=== PATIENT | female | born 1965 | race Caucasian/White ===

== ENCOUNTER → 2016-12-22 | Outpatient (CLI) | payer MEDICAID ==
[2016-12-22 08:57] LABS: Basophils % (A) 0 %; CH 30.2; CHCM 34.8; Eosinophils # (A) 0.1 k/uL (0-0.7); Eosinophils % (A) 1 %; HCT 39.1 % (34.0-46.0); HDW 2.63; HGB 13.3 gm/dL (11.4-16.0); Luc # (Auto) 0.08; Luc % (Auto) 2; Lymphocytes # (A) 1.8 k/uL (1.0-4.8); Lymphocytes % (A) 36 %; MCH 29.6 pg (25.0-35.0); MCV 87.2 fL (80.0-100.0); Mean Platelet Volume 6.4; Monocytes # (A) 0.2 k/uL (0-1.0); Monocytes % (A) 4 %; Neutrophils # (A) 2.9 k/uL (1.3-7.7); Neutrophils % (A) 57 %; RBC 4.48 m/uL (3.80-5.40); RDW 13.2 % (11.5-15.5); WBC 5.1 k/uL (3.8-10.6); WBC (Perox) 5.39
[2016-12-22 10:00] LABS: ALT 26 U/L (9-52); AST 20 U/L (14-36); Alkaline Phosphatase 48 U/L (38-126); Anion Gap 10 mmol/L; Blood Urea Nitrogen 7 mg/dL (7-17); Calcium 9.6 mg/dL (8.4-10.2); Carbon Dioxide 26 mmol/L (22-30); Chloride 107 mmol/L (98-107); Cholesterol 188 mg/dL (<200); Glucose 90 mg/dL (74-99); HDL Cholesterol 57 mg/dL (40-60); Non-African American GFR(MDRD) >60 (>60 ml/min/1.73 sqM); Potassium 4.5 mmol/L (3.5-5.1); Sodium 143 mmol/L (137-145); Total Bilirubin 0.4 mg/dL (0.2-1.3); Total Protein 6.8 g/dL (6.3-8.2); Triglycerides 87 mg/dL (<150)
[2016-12-22 10:45] LABS: Vitamin B12 261 pg/mL (239-931)
[2016-12-22 11:34] LABS: Erythrocyte Sedimentation Rate 14 mm/hr (0-20)
== END | disposition home or self-care (01) ==
LOC: LABWHC1 07:58
PROVIDERS: ATTEND Internal Medicine
DX: E78.5 Hyperlipidemia, unspecified (principal); C50.919 Malignant neoplasm of unspecified site of unspecified female breast; M79.7 Fibromyalgia; E55.9 Vitamin D deficiency, unspecified; K21.9 Gastro-esophageal reflux disease without esophagitis; G62.9 Polyneuropathy, unspecified
CPT/HCPCS: 36415; 80053; 80061; 82306; 82607; 84439; 84443; 85025; 85652; 86677

== ENCOUNTER → 2017-01-12 | Outpatient (CLI) | payer MEDICAID ==
--- NOTE | 2017-01-12 15:02 | XR ---
EXAMINATION TYPE: XR lumbosacral spine min 4V DATE OF EXAM: 01/12/2017 2:21 PM COMPARISON: NONE HISTORY: Low back pain TECHNIQUE: 5 view lumbar spine FINDINGS: T12 ribs appear rudimentary. There 5 lumbar-type vertebral bodies. The pedicles are intact. L5-S1 disc space is narrowed. Disc heights are otherwise preserved. Vertebral body heights are prese rved. L5-S1 facet degenerative changes present. IMPRESSION: 1. Degenerative disc changes and facet changes L5-S1.
== END | disposition home or self-care (01) ==
LOC: RADXRMAIN 14:01
PROVIDERS: ATTEND Internal Medicine
DX: M51.37 Other intervertebral disc degeneration, lumbosacral region (principal)
CPT/HCPCS: 72110

== ENCOUNTER → 2017-02-01 | Outpatient (CLI) | payer MEDICAID ==
--- NOTE | 2017-02-02 09:42 | MM ---
Reason for exam: follow-up at short interval from prior study. Last mammogram was performed 7 months ago. History: Patient has history of breast cancer at age 41. Silicone gel implants, February 2016. Breast lift of the left breast, February 2016. Benign US biopsy breast VAD LT of the left breast, June 25, 2015. Malignant mastectomy of the right breast, October 05, 2006. Saline implants in both breasts, 2006. Benign excisional biopsy of the left breast, 2001. Took tamoxifen for 1 year 9 months. Physical Findings: Nurse Summary: Findings indicate a 1 x 1.5cm and a 1 x 1cm nodule in the 1 o'clock and 4 o'clock position (nurse ts). MG 3D Diag Mammo Imp W/Cad LT CC, MLO, and ID view(s) were taken of the left breast. Prior study comparison: June 23, 2016, left breast MG 3d diag mammo imp w/cad LT. December 23, 2015, left breast MG 3d diag mammo imp w/cad LT. The breast tissue is heterogeneously dense. This may lower the sensitivity of mammography. Previous mammotome biopsy within the left breast. There is chronic nodularity in the left breast. Left breast implant. Increase in size. These results were verbally communicated with the patient and result sheet given to the patient on 02/01/18. ASSESSMENT: Incomplete: need additional imaging evaluation, BI-RAD 0 RECOMMENDATION: Ultrasound of the left breast.
--- NOTE | 2017-02-02 09:47 | USB ---
Reason for exam: additional evaluation requested from abnormal screening. History: Patient has history of breast cancer at age 41. Silicone gel implants, February 2016. Breast lift of the left breast, February 2016. Benign US biopsy breast VAD LT of the left breast, June 25, 2015. Malignant mastectomy of the right breast, October 05, 2006. Saline implants in both breasts, 2006. Benign excisional biopsy of the left breast, 2001. Took tamoxifen for 1 year 9 months. US Breast LT Left breast ultrasound includes all four quadrants, the retroareolar region and axilla. Finding demonstrate a 9 x 6 x 8mm oval, cystic lesion at palpable at 2 o'clock, a 6 x 5 x 8mm irregular, solid, hypoechoic lesion at 3 o'clock, previously biopsied, consistent with fibrocystic changes, and a 18 x 11 x 17mm oval, cystic lesion at 4 o'clock at palpable. These results were verbally communicated with the patient and result sheet given to the patient on 02/01/17. ASSESSMENT: Benign, BI-RAD 2 RECOMMENDATION: Follow-up diagnostic mammogram of the left breast in 5 months. Back on schedule June 2017.
== END | disposition home or self-care (01) ==
LOC: RADMAMWWP 08:17
PROVIDERS: ATTEND Obstetrics & Gynecology
DX: R92.8 Other abnormal and inconclusive findings on diagnostic imaging of breast (principal); Z98.82 Breast implant status
CPT/HCPCS: 76641; G0206; G0279

== ENCOUNTER → 2017-06-19 | Day surgery (SDC) | payer MEDICAID ==
[2017-06-14 12:16] VITALS: BMI 22.4
[~2017-06-19] MED LIST: BUPIVACAINE-EPI 0.5%-1:200,000 10 ML VIAL SQ ONE; DEXAMETHASONE SOD PHOSPHATE 10 MG/ML 1 ML VIAL IV ONE; HEPARIN SODIUM,PORCINE 5,000 UNIT/ML 1 ML VIAL SQ ONE; HYDROmorphone 0.5 MG/0.5 ML SYRINGE IVP PRN; KETOROLAC 30 MG/ML 1 ML VIAL ONE; LACTATED RINGERS 1,000 ML IV SCH; LIDOCAINE 1% 20 ML VIAL (10MG/ML) FOR IV START INTRADERMA ONE; LIDOCAINE 1% INJ 10MG/ML (20 ML MDV) ONE; MIDAZOLAM 2 MG/2 ML VIAL IV PRN; MIDAZOLAM 2 MG/2 ML VIAL ONE; ONDANSETRON 4 MG/2 ML VIAL IVP ONE; PROPOFOL 10 MG/ML 20 ML VIAL IV ONE; Pre Op ABX Message 1 EACH MISC MISCELLANE ONE; SCOPOLAMINE 1.5MG/72HR PATCH TRANSDERM ONE; SODIUM CHLORIDE 0.9% 50 ML with ceFAZolin 2,000 MG IV ONE; fentaNYL (PF) 50 MCG/ML 2 ML AMP ONE
[2017-06-19 06:49] VITALS: RESP 16; TEMP 98
[2017-06-19 08:33] VITALS: BP 99/57; PULSE 69
--- NOTE | 2017-06-19 10:59 | P.OP ---
Date of Procedure: 06/19/17 Preoperative Diagnosis: Right chest wall cyst Postoperative Diagnosis: Same Procedure(s) Performed: Excision of sebaceous cyst right chest wall Implants: NA Anesthesia: MAC, local Surgeon: Oneida Crawley Estimated Blood Loss (ml): 1 Pathology: none sent Condition: stable Disposition: PACU Indications for Procedure: 51 yr old female presents with growing right chest wall cyst. Mild redness. H/O right mastectomy and implant. Operative Findings: Right chest wall sebaceous cyst Description of Procedure: The patient was brought to the operating room and placed in supine position with both arms out. IV sedation was given as per anesthesia team. Chlorhexidine was used to prep the skin followed by application of sterile drapes. A timeout was performed to verify the correct patient, correct site and correct procedure. She was confirmed to receive perioperative IV antibiotics, bilateral SCDs. 10 mL of 0.25% Marcaine with epinephrine was infiltrated along the proposed skin incision to create a field block. 1.5 cm elliptical skin incision was made along the natural skin crease over the palpable mass. Dissection was carried around using a hemostat and scissors to remove the entire cyst wall. It was completely dissected off the surrounding subcutaneousand hemostasis was checked using electrocautery. The final measurement is 1.5 x 0.5 x0.1 cm The resulting defect for checked for hemostasis. It was closed in 2 layers , deep subcutaneous fat layer using 3-0 Vicryl and 4-0 interrupted nylon. Telfa dressing applied followed by Tegaderm. The sponge , instrument and needle count were correctx 2. Patient tolerated the procedure well and was taken to PACU in stable condition.
== END | disposition home or self-care (01) ==
LOC: OR 06:29
PROVIDERS: ATTEND Surgery
DX: L72.0 Epidermal cyst (principal); M79.7 Fibromyalgia; K21.9 Gastro-esophageal reflux disease without esophagitis; Z79.899 Other long term (current) drug therapy
CPT/HCPCS: 11402; 12031; 88304; J2250; J1644; J1100; J2405; J2001; J3010; J1885; J0690; J2704

== ENCOUNTER → 2017-11-27 | Outpatient (CLI) | payer MEDICAID ==
--- NOTE | 2017-11-27 15:16 | MM ---
Reason for exam: follow-up at short interval from prior study. Last mammogram was performed 10 months ago. History: Patient has history of breast cancer at age 41. Silicone gel implants, February 2016. Breast lift of the left breast, February 2016. Benign US biopsy breast VAD LT of the left breast, June 25, 2015. Malignant mastectomy of the right breast, October 05, 2006. Saline implants in both breasts, 2006. Benign excisional biopsy of the left breast, 2001. Took antineoplastic for 5 years beginning at age 41. Physical Findings: Nurse Summary: 1cm nodule in the left breast at 2:30 (nurse dw). MG 3D Diag Mammo Imp W/Cad LT CC, MLO, and ID view(s) were taken of the left breast. Prior study comparison: February 01, 2017, left breast MG 3d diag mammo imp w/cad LT. June 23, 2016, left breast MG 3d diag mammo imp w/cad LT. The breast tissue is heterogeneously dense. This may lower the sensitivity of mammography. There are benign multiple stable left breast masses although there are also at least 3 new medial asymmetries for which ultrasound will be performed. These results were verbally communicated with the patient and result sheet given to the patient on 11/27/17. ASSESSMENT: Incomplete: need additional imaging evaluation, BI-RAD 0 RECOMMENDATION: Ultrasound of the left breast. (medial breast)
--- NOTE | 2017-11-27 15:21 | USB ---
Reason for exam: additional evaluation requested from abnormal screening. History: Patient has history of breast cancer at age 41. Silicone gel implants, February 2016. Breast lift of the left breast, February 2016. Benign US biopsy breast VAD LT of the left breast, June 25, 2015. Malignant mastectomy of the right breast, October 05, 2006. Saline implants in both breasts, 2006. Benign excisional biopsy of the left breast, 2001. Took antineoplastic for 5 years beginning at age 41. US Breast Limited LT Left breast ultrasound demonstrates several oval, cystic lesions measuring 15 x 12 x 15 at 4 o'clock BB, 7mm at 4 o'clock, 4mm at 10 o'clock, 10mm at 11 o'clock and 6mm at 11 o'clock. These results were verbally communicated with the patient and result sheet given to the patient on 11/27/17. ASSESSMENT: Benign, BI-RAD 2 RECOMMENDATION: Routine screening mammogram of the left breast in 1 year.
== END | disposition home or self-care (01) ==
LOC: RADMAMWWP 13:45
PROVIDERS: ATTEND Obstetrics & Gynecology
DX: R92.8 Other abnormal and inconclusive findings on diagnostic imaging of breast (principal); Z85.3 Personal history of malignant neoplasm of breast
CPT/HCPCS: 77065; 76642; G0279

== ENCOUNTER → 2018-06-13 | Outpatient (CLI) | payer MEDICAID ==
--- NOTE | 2018-06-13 09:42 | MM ---
Reason for exam: clinical finding. Last mammogram was performed 6 months ago. History: Patient has history of breast cancer at age 41. Silicone gel implants, February 2016. Breast lift of the left breast, February 2016. Benign US biopsy breast VAD LT of the left breast, June 25, 2015. Malignant mastectomy of the right breast, October 05, 2006. Saline implants in both breasts, 2006. Benign excisional biopsy of the left breast, 2001. Took antineoplastic for 5 years beginning at age 41. Physical Findings: Nurse Summary: 1cm nodule in the left breast at 12 o'clock and 3 o'clock (nurse dw). MG 3D Diag Mammo Imp W/Cad LT CC, MLO, and ID view(s) were taken of the left breast. Prior study comparison: November 27, 2017, left breast MG 3d diag mammo imp w/cad LT. February 01, 2017, left breast MG 3d diag mammo imp w/cad LT. The breast tissue is heterogeneously dense. This may lower the sensitivity of mammography. Previous mammotome biopsy in the left breast. There is chronic nodularity in the left breast. Implants intact. These results were verbally communicated with the patient and result sheet given to the patient on 06/13/18. ASSESSMENT: Incomplete: need additional imaging evaluation, BI-RAD 0 RECOMMENDATION: Ultrasound of the left breast.
--- NOTE | 2018-06-13 09:44 | USB ---
Reason for exam: additional evaluation requested from abnormal screening. History: Patient has history of breast cancer at age 41. Silicone gel implants, February 2016. Breast lift of the left breast, February 2016. Benign US biopsy breast VAD LT of the left breast, June 25, 2015. Malignant mastectomy of the right breast, October 05, 2006. Saline implants in both breasts, 2006. Benign excisional biopsy of the left breast, 2001. Took antineoplastic for 5 years beginning at age 41. US Breast LT Left complete breast ultrasound includes all four quadrants, the retroareolar region and axilla. Finding demonstrates a 5 x 5 x 5mm cystic lesion at 12 o'clock BB, a 7 x 3 x 6mm solid, hypoechoic lesion at 3 o'clock and a 13 x 9 x 13mm cystic lesion at 4 o'clock BB. Multiple cystic area seen. These results were verbally communicated with the patient and result sheet given to the patient on 06/13/18. ASSESSMENT: Benign, BI-RAD 2 RECOMMENDATION: Routine screening mammogram of both breasts in 1 year. Manage patient on a clinical basis.
== END | disposition home or self-care (01) ==
LOC: RADMAMWWP 07:37
PROVIDERS: ATTEND Surgery
DX: N64.4 Mastodynia (principal); N63.20 Unspecified lump in the left breast, unspecified quadrant; R92.8 Other abnormal and inconclusive findings on diagnostic imaging of breast
CPT/HCPCS: 77061; 77065

== ENCOUNTER 2018-11-07 10:42 | Day surgery (SDC) | payer MEDICAID ==
[2018-11-02 10:49] VITALS: BMI 23.0
[~2018-11-07 10:42] MED LIST changes: -BUPIVACAINE-EPI 0.5%-1:200,000 10 ML VIAL SQ ONE; -DEXAMETHASONE SOD PHOSPHATE 10 MG/ML 1 ML VIAL IV ONE; -HEPARIN SODIUM,PORCINE 5,000 UNIT/ML 1 ML VIAL SQ ONE; -HYDROmorphone 0.5 MG/0.5 ML SYRINGE IVP PRN; -KETOROLAC 30 MG/ML 1 ML VIAL ONE; -LIDOCAINE 1% 20 ML VIAL (10MG/ML) FOR IV START INTRADERMA ONE; +LIDOCAINE 1% 20 ML VIAL (10MG/ML) FOR IV START INTRADERMA PRN; -LIDOCAINE 1% INJ 10MG/ML (20 ML MDV) ONE; -MIDAZOLAM 2 MG/2 ML VIAL IV PRN; -MIDAZOLAM 2 MG/2 ML VIAL ONE; -ONDANSETRON 4 MG/2 ML VIAL IVP ONE; -PROPOFOL 10 MG/ML 20 ML VIAL IV ONE; -Pre Op ABX Message 1 EACH MISC MISCELLANE ONE; -SCOPOLAMINE 1.5MG/72HR PATCH TRANSDERM ONE; -SODIUM CHLORIDE 0.9% 50 ML with ceFAZolin 2,000 MG IV ONE; -fentaNYL (PF) 50 MCG/ML 2 ML AMP ONE
[2018-11-07 11:17] VITALS: RESP 16; TEMP 98.2
[2018-11-07] MEDS ORDERED: MIDAZOLAM 2 MG/2 ML VIAL ONE (12:00)
[2018-11-07] MEDS ORDERED: PROPOFOL 10 MG/ML 20 ML VIAL IV ONE (12:00)
[2018-11-07] MEDS ORDERED: fentaNYL (PF) 50 MCG/ML 2 ML AMP ONE (12:00)
--- NOTE | 2018-11-07 12:20 | P.PCN ---
Date of Procedure: 11/07/18 Procedure(s) Performed: BRIEF HISTORY: Patient is a 53-year-old pleasant white female, scheduled for an elective colonoscopy as a part screening for colorectal neoplasia PROCEDURE PERFORMED: Colonoscopy With snare polypectomy PREOPERATIVE DIAGNOSIS: Screening for colon cancer. IV sedation per Anesthesia. PROCEDURE: After informed consent was obtained, the patient, was brought into the endoscopy unit. IV sedation was administered by Anesthesia under continuous monitoring. Digital rectal examination was normal. Initially the Olympus CF- 160 flexible video colonoscope was then inserted in the rectum, gradually advanced into the cecum without any difficulty. Careful examination was performed as the scope was gradually being withdrawn. Ileocecal valve and the appendiceal orifice were visualized and appeared normal. Prep was excellent. Mucosa of the cecum appeared normal. In the ascending colon there was a 5 mm sessile polyp removed by snare polypectomy. Rest of thecending colon, transverse colon, descending colon, sigmoid colon, and rectum appeared normal. Retroflexion was performed in the rectum and no lesions were seen. The patient tolerated the procedure well. IMPRESSION: 5 mm sessile ascending colon polyp status post polypectomy Rest of the colon appeared normal RECOMMENDATIONS: Findings of this examination were discussed with the patient as well as a family. She was advised to follow with the biopsy results and have a repeat screening colonoscopy in 5 years.
[2018-11-07 12:39] VITALS: BP 90/55; PULSE 69
== END 2018-11-07 13:03 | disposition home or self-care (01) ==
LOC: ORWHC2ENDO 10:42
PROVIDERS: ATTEND Internal Medicine Gastroenterology
DX: Z12.11 Encounter for screening for malignant neoplasm of colon (principal); D12.2 Benign neoplasm of ascending colon; K21.9 Gastro-esophageal reflux disease without esophagitis; M79.7 Fibromyalgia; Z79.899 Other long term (current) drug therapy
CPT/HCPCS: 88305; 45385; J2250; J3010; J2704

== ENCOUNTER → 2019-06-26 | Outpatient (CLI) | payer MEDICAID ==
--- NOTE | 2019-06-28 10:54 | MM ---
Reason for exam: screening (asymptomatic). Last mammogram was performed 1 year ago. History: Patient is postmenopausal and has history of breast cancer at age 41. Silicone gel implants, February 2016. Breast lift of the left breast, February 2016. Benign US biopsy breast VAD LT of the left breast, June 25, 2015. Malignant mastectomy of the right breast, October 05, 2006. Saline implants in both breasts, 2006. Benign excisional biopsy of the left breast, 2001. Took antineoplastic for 5 years beginning at age 41. Physical Findings: A clinical breast exam by your physician is recommended on an annual basis and results should be correlated with mammographic findings. MG 3D Screen Mammo Imp/Cad CC, MLO, and ID view(s) were taken of the left breast. Prior study comparison: June 13, 2018, left breast MG 3d diag mammo imp w/cad LT. November 27, 2017, left breast MG 3d diag mammo imp w/cad LT. The breast tissue is heterogeneously dense. This may lower the sensitivity of mammography. Previous mammotome biopsy in the right breast. Retropectoral silicone implant. Two underlying nodules better seen on 3D were present previously as well. No significant changes when compared with prior studies. ASSESSMENT: Benign, BI-RAD 2 RECOMMENDATION: Routine screening mammogram of the left breast in 1 year.
== END | disposition home or self-care (01) ==
LOC: RADMAMWWP 12:45
PROVIDERS: ATTEND Obstetrics & Gynecology
DX: Z12.31 Encounter for screening mammogram for malignant neoplasm of breast (principal); Z98.82 Breast implant status
CPT/HCPCS: 77063; 77067

== ENCOUNTER → 2019-07-01 | Outpatient (CLI) | payer MEDICAID ==
[2019-07-01 09:27] LABS: Basophils % (A) 0 %; Eosinophils # (A) 0.1 k/uL (0-0.7); Eosinophils % (A) 1 %; HCT 39.3 % (34.0-46.0); HGB 13.2 gm/dL (11.4-16.0); Lymphocytes # (A) 2.4 k/uL (1.0-4.8); Lymphocytes % (A) 45 %; MCH 30.2 pg (25.0-35.0); MCHC 33.6 g/dL (31.0-37.0); MCV 89.9 fL (80.0-100.0); Mean Platelet Volume 6.3; Monocytes # (A) 0.2 k/uL (0-1.0); Monocytes % (A) 4 %; Neutrophils # (A) 2.5 k/uL (1.3-7.7); Neutrophils % (A) 48 %; Platelet Count 251 k/uL (150-450); RBC 4.37 m/uL (3.80-5.40); RDW 13.6 % (11.5-15.5); WBC 5.3 k/uL (3.8-10.6)
[2019-07-01 17:37] LABS: African American GFR (CKD) 122.3 (60.0-200.0); Albumin 4.1 g/dL (3.80-4.90); Albumin/Globulin Ratio 2.41 (1.60-3.17); Anion Gap 5.7 mmol/L (4.00-12.00); BUN/Creat Ratio 11.67 Ratio (12.00-20.00); Carbon Dioxide 30.3 mmol/L (21.6-31.8); Chol/HDL Ratio 3.26; Globulin 1.7 g/dL (1.6-3.3); LDL Cholesterol,Calculated 109.2 mg/dL (0.0-131.0); Potassium 4.5 mmol/L (3.5-5.5); Total Bilirubin 0.5 mg/dL (0.2-1.2); Total Protein 5.8 g/dL (6.2-8.2); VLDL Calculation 19.8 mg/dL (5.00-40.00)
[2019-07-01 17:46] LABS: T4, Free (Free Thyroxine) 1.1 ng/dL (0.80-1.80)
== END ==
LOC: LABWHC1 08:55
PROVIDERS: ATTEND Internal Medicine
DX: Z00.00 Encounter for general adult medical examination without abnormal findings (principal); E78.5 Hyperlipidemia, unspecified; E55.9 Vitamin D deficiency, unspecified
CPT/HCPCS: 36415; 80053; 80061; 82306; 84439; 84443; 85025

== ENCOUNTER → 2020-08-19 | Outpatient (CLI) | payer MEDICAID ==
--- NOTE | 2020-08-21 10:36 | MM ---
Reason for exam: screening (asymptomatic). Last mammogram was performed 1 year and 2 months ago. History: Patient is postmenopausal and has history of breast cancer at age 41. Silicone gel implants, February 2016. Breast lift of the left breast, February 2016. Benign US biopsy breast VAD LT of the left breast, June 25, 2015. Malignant mastectomy of the right breast, October 05, 2006. Saline implants in both breasts, 2006. Benign excisional biopsy of the left breast, 2001. Took antineoplastic for 5 years beginning at age 41. Physical Findings: A clinical breast exam by your physician is recommended on an annual basis and results should be correlated with mammographic findings. MG 3D Screen Mammo Imp/Cad CC, MLO, ID, and XCCL view(s) were taken of the left breast. Prior study comparison: June 26, 2019, left breast MG 3d screen mammo imp/cad. June 13, 2018, left breast MG 3d diag mammo imp w/cad LT. The breast tissue is heterogeneously dense. This may lower the sensitivity of mammography. Previous mammotome biopsy in the left breast. There is chronic nodularity in the left breast. Retropectoral silicone implant. No significant changes when compared with prior studies. ASSESSMENT: Benign, BI-RAD 2 RECOMMENDATION: Routine screening mammogram of the left breast in 1 year.
== END | disposition home or self-care (01) ==
LOC: RADMAMWWP 13:25
PROVIDERS: ATTEND Obstetrics & Gynecology
DX: Z12.31 Encounter for screening mammogram for malignant neoplasm of breast (principal); Z85.3 Personal history of malignant neoplasm of breast; Z90.11 Acquired absence of right breast and nipple
CPT/HCPCS: 77063; 77067

== ENCOUNTER → 2021-03-03 | Outpatient (CLI) | payer MEDICAID ==
[2021-03-03 12:11] LABS: Basophils # (A) 0.03 X 10*3/uL (0.00-0.10); Basophils % (A) 0.6 %; Eosinophils % (A) 1.9 %; HCT 38.4 % (37.2-46.3); HGB 12.7 g/dL (12.0-15.0); Lymphocytes % (A) 42.5 %; MCH 29.6 pg (27.0-32.0); MCHC 33.1 g/dL (32.0-37.0); MCV 89.5 fL (80.0-97.0); Mean Platelet Volume 10.3 fL (9.5-12.2); Monocytes # (A) 0.32 X 10*3/uL (0.20-1.00); Monocytes % (A) 6.2 %; Neutrophils # (A) 2.52 X 10*3/uL (1.80-7.70); Neutrophils % (A) 48.6 %; Platelet Count 251 X 10*3/uL (140-440); RBC 4.29 X 10*6/uL (4.10-5.20); RDW 12.6 % (11.5-14.5); WBC 5.18 X 10*3/uL (4.50-10.00)
[2021-03-03 16:32] LABS: T4, Free (Free Thyroxine) 1.3 ng/dL (0.80-1.80)
[2021-03-03 17:41] LABS: Erythrocyte Sedimentation Rate 12 mm/Hr (0-30)
[2021-03-03 17:57] LABS: African American GFR (CKD) 120.6 (60.0-200.0); Albumin 4.4 g/dL (3.80-4.90); Albumin/Globulin Ratio 2.1 (1.60-3.17); Anion Gap 7.3 mmol/L (4.00-12.00); BUN/Creat Ratio 11.67 Ratio (12.00-20.00); C Reactive Protein, High Sens 0.21 mg/L (0.000-3.000); Calcium 9.3 mg/dL (8.7-10.3); Carbon Dioxide 28.7 mmol/L (21.6-31.8); Chol/HDL Ratio 3.91; Globulin 2.1 g/dL (1.6-3.3); LDL Cholesterol,Calculated 125.8 mg/dL (0.0-131.0); Non-African American GFR(CKD) 104.1 (60.0-200.0); Potassium 4.1 mmol/L (3.5-5.5); Total Bilirubin 0.4 mg/dL (0.3-1.2); Total Protein 6.5 g/dL (6.2-8.2); Uric Acid 2.7 mg/dL (2.9-7.7); VLDL Calculation 28.2 mg/dL (5.00-40.00)
== END | disposition home or self-care (01) ==
LOC: LABWHC1 07:49
PROVIDERS: ATTEND Internal Medicine Critical Care Medicine
DX: M25.50 Pain in unspecified joint (principal); M79.7 Fibromyalgia; R51.9 Headache, unspecified
CPT/HCPCS: 36415; 80053; 80061; 82306; 82607; 84439; 84443; 84550; 85025; 85652; 86038; 86141; 86431

== ENCOUNTER → 2021-08-20 | Outpatient (CLI) | payer MEDICAID ==
--- NOTE | 2021-08-20 14:51 | MM ---
Reason for exam: additional evaluation requested from prior study. Last mammogram was performed 1 year ago. History: Patient is postmenopausal and has history of breast cancer at age 41. Silicone gel implants, February 2016. Breast lift of the left breast, February 2016. Benign US biopsy breast VAD LT of the left breast, June 25, 2015. Malignant mastectomy of the right breast, October 05, 2006. Saline implants in both breasts, 2006. Benign excisional biopsy of the left breast, 2001. Took antineoplastic for 5 years beginning at age 41. Physical Findings: Nurse Summary: 1.5cm nodule in the left breast at 3 o'clock and a 1cm nodule in the left breast at 5 'clock (nurse dw). MG 3D Diag Mammo Imp W/Cad LT CC, MLO, ID, and XCCL view(s) were taken of the left breast. Prior study comparison: August 19, 2020, bilateral MG 3d screen mammo imp/cad. June 26, 2019, left breast MG 3d screen mammo imp/cad. The breast tissue is heterogeneously dense. This may lower the sensitivity of mammography. Previous mammotome biopsy in the left breast. There is chronic nodularity in the left breast laterally, two lesions up to 11mm last ultrasound 2017. These results were verbally communicated with the patient and result sheet given to the patient on 08/20/21. ASSESSMENT: Incomplete: need additional imaging evaluation, BI-RAD 0 RECOMMENDATION: Ultrasound of the left breast.
--- NOTE | 2021-08-20 14:52 | USB ---
Reason for exam: additional evaluation requested from abnormal screening. History: Patient is postmenopausal and has history of breast cancer at age 41. Silicone gel implants, February 2016. Breast lift of the left breast, February 2016. Benign US biopsy breast VAD LT of the left breast, June 25, 2015. Malignant mastectomy of the right breast, October 05, 2006. Saline implants in both breasts, 2006. Benign excisional biopsy of the left breast, 2001. Took antineoplastic for 5 years beginning at age 41. US Breast Limited LT Left limited breast ultrasound including focal area of concern, retroareolar and axilla demonstrates a 10 x 8 x 10mm oval, mixed, hypoechoic lesion at 4 o'clock, decreased in size from 2018. Additional smaller benign cysts. These results were verbally communicated with the patient and result sheet given to the patient on 08/20/21. ASSESSMENT: Benign, BI-RAD 2 RECOMMENDATION: Routine screening mammogram of both breasts in 1 year.
== END | disposition home or self-care (01) ==
LOC: RADMAMWWP 13:01
PROVIDERS: ATTEND Obstetrics & Gynecology
DX: N60.02 Solitary cyst of left breast (principal); N64.59 Other signs and symptoms in breast; Z85.3 Personal history of malignant neoplasm of breast; Z78.0 Asymptomatic menopausal state; Z98.82 Breast implant status
CPT/HCPCS: 77061; 77065

== ENCOUNTER → 2022-01-31 | Outpatient (CLI) | payer MEDICAID | END | disposition home or self-care (01) | LOC: LABWHC1 14:04 | PROVIDERS: ATTEND Ophthalmology | DX: M31.6 Other giant cell arteritis (principal) | CPT/HCPCS: 36415; 85652; 86140 ==

== ENCOUNTER → 2022-03-17 | Outpatient (CLI) | payer MEDICAID ==
--- NOTE | 2022-03-17 10:06 | CT ---
EXAMINATION TYPE: CT sinus wo con DATE OF EXAM: 03/17/2022 COMPARISON: None available HISTORY: Chronic Sinusitis CT DLP: 596.5 mGycm. Automated Exposure Control for Dose Reduction was Utilized. TECHNIQUE: CT scan of the sinuses is performed without contrast, axial images are obtained, coronal r eformatted images are also reviewed. FINDINGS: Slightly deviated bony nasal septum convex to the right side with a bony spare. No significant mucosa l thickening of the nasal fossa bilaterally. Paradoxical middle turbinates. Hypoplastic left inferior turbinate. Patent infundibulum and ostiomeatal complex bilaterally. Minimal mucosal thickening of the right maxi llary sinus. Otherwise unremarkable maxillary sinuses, frontal sinus, ethmoid air cells and sphenoid sinus. Patent sphenoethmoidal recesses. Clear mastoid air cells. Suspected chronic fractures of the nasal kuldip jacinta, please correlate clinically. Unremarkable visualized portion of the brain and orbits. IMPRESSION: Minimal mucosal thickening of the right maxillary sinus, otherwise unremarkable paranasal sinuses. Ot her findings as described above.
== END | disposition home or self-care (01) ==
LOC: RADCTMAIN 06:47
PROVIDERS: ATTEND Internal Medicine Critical Care Medicine
DX: J34.89 Other specified disorders of nose and nasal sinuses (principal)
CPT/HCPCS: 70486

== ENCOUNTER → 2022-09-08 | Outpatient (CLI) | payer MEDICAID ==
--- NOTE | 2022-09-09 06:56 | MM ---
Reason for Exam: Screening (asymptomatic). Last screening mammogram was performed 12 month(s) ago. Patient History: Menarche at age 13. First Full-Term at age 20. Hysterectomy at age 44. Postmenopausal. Breast cancer, age 41. 2006, Mastectomy on the Right side. 2001, Benign Excisional Biopsy on the left side. 06/25/2015, Benign Core Biopsy on the left side. 2006, Bilateral Implants. 02/2016, Implant(s). Prior Study Comparison: 06/26/2019 Left Screening Mammogram, [facility]. 08/19/2020 Bilateral Screening Mammogram, [facility]. 08/20/2021 Left Diagnostic Mammogram, [facility]. Tissue Density: The breast tissue is heterogeneously dense. This may lower the sensitivity of mammography. Findings: Analyzed By CAD. Biopsy clip left breast upper-outer quadrant redemonstrated. Left breast implant again seen. There is round circumscribed 1.1 cm lesion left breast redemonstrated a background dense tissue that is stable or smaller from prior studies. There is no suspicious new group of microcalcifications or new suspicious or enlarging mass in either breast. Overall Assessment: Benign, BI-RAD 2 Management: Screening Mammogram of the left breast in 1 year. A clinical breast exam by your physician is recommended on an annual basis and results should be correlated with mammographic findings. Electronically signed and approved by: Augustine Merrill M.D.
== END | disposition home or self-care (01) ==
LOC: RADMAMWWP 11:05
PROVIDERS: ATTEND Obstetrics & Gynecology
DX: Z12.31 Encounter for screening mammogram for malignant neoplasm of breast (principal)
CPT/HCPCS: 77063; 77067

== ENCOUNTER → 2023-02-07 | Outpatient (CLI) | payer MEDICAID ==
[2023-02-07 10:58] LABS: Basophils # (A) 0.03 X 10*3/uL (0.00-0.10); Basophils % (A) 0.6 %; Eosinophils # (A) 0.09 X 10*3/uL (0.04-0.35); Eosinophils % (A) 1.7 %; HCT 39.1 % (37.2-46.3); HGB 12.9 g/dL (12.0-15.0); Immature Grans, Automated 0.2 %; Lymphocytes # (A) 2.49 X 10*3/uL (0.90-5.00); Lymphocytes % (A) 46.3 %; MCH 29.3 pg (27.0-32.0); MCV 88.7 fL (80.0-97.0); Mean Platelet Volume 9.8 fL (9.5-12.2); Monocytes # (A) 0.28 X 10*3/uL (0.20-1.00); Monocytes % (A) 5.2 %; NRBC Per 100 WBC 0 /100 WBCS (0.0-0.0); Neutrophils # (A) 2.48 X 10*3/uL (1.80-7.70); Platelet Count 283 X 10*3/uL (140-440); RBC 4.41 X 10*6/uL (4.10-5.20); RDW 12.5 % (11.5-14.5); WBC 5.38 X 10*3/uL (4.50-10.00)
[2023-02-07 11:22] LABS: ALT 14 U/L (8-44); AST 18 U/L (13-35); African American GFR (CKD) 118.9 (60.0-200.0); Albumin 4.5 g/dL (3.8-4.9); Albumin/Globulin Ratio 2.25 (1.60-3.17); Alkaline Phosphatase 68 U/L (41-126); BUN/Creat Ratio 9.17 Ratio (12.00-20.00); Blood Urea Nitrogen 5.5 mg/dL (9.0-27.0); Calcium 9.6 mg/dL (8.7-10.3); Carbon Dioxide 26.2 mmol/L (20.0-27.5); Chloride 106 mmol/L (96-109); Chol/HDL Ratio 4.32 Ratio; Glucose 96 mg/dL (70-110); LDL Cholesterol,Calculated 143.8 mg/dL (0.0-131.0); Non-African American GFR(CKD) 102.6 (60.0-200.0); Sodium 143 mmol/L (135-145); Total Bilirubin <0.15 mg/dL (0.30-1.20); Total Protein 6.5 g/dL (6.2-8.2)
[2023-02-07 12:47] LABS: Erythrocyte Sedimentation Rate 5 mm/Hr (0-30)
== END | disposition home or self-care (01) ==
LOC: LABWHC1 07:45
PROVIDERS: ATTEND Internal Medicine Critical Care Medicine
DX: M79.7 Fibromyalgia (principal); R53.83 Other fatigue
CPT/HCPCS: 36415; 80053; 80061; 82306; 82607; 83036; 84439; 84443; 85025; 85652

== ENCOUNTER → 2023-07-18 | Outpatient (CLI) | payer MEDICAID ==
--- NOTE | 2023-07-18 10:53 | MM ---
Reason for Exam: Hx of breast cancer, mastectomy. Last screening mammogram was performed 10 month(s) ago. Patient History: Menarche at age 13. First Full-Term at age 20. Hysterectomy at age 44. Postmenopausal. Breast cancer, age 41. 2006, Mastectomy on the Right side. 10/05/2006, Malignant Mastectomy on the right side. 2001, Benign Excisional Biopsy on the left side. 06/25/2015, Benign Core Biopsy on the left side. 2006, Bilateral Implants. 02/2016, Implant(s). Prior Study Comparison: 08/19/2020 Bilateral Screening Mammogram, [facility]. 08/20/2021 Left Diagnostic Mammogram, [facility]. 09/08/2022 Bilateral MG 3D screen mammo imp/cad., [facility]. Tissue Density: The breast tissue is heterogeneously dense. This may lower the sensitivity of mammography. Findings: Analyzed By CAD. Pattern appears stable. Left breast prosthesis remains present. Core markers within the left breast. Several nodules in the lower inner aspect anterior left breast. No suspicious groups of microcalcifications, spiculated or lobular masses, architectural distortion or other secondary signs of malignancy are mammographically apparent. Overall Assessment: Benign, BI-RAD 2 Management: Screening Mammogram of the left breast in 1 year. A negative mammogram report should not preclude additional follow up of suspicious palpable abnormalities. Patient should continue monthly self breast exam. A clinical breast exam by your physician is recommended on an annual basis and results should be correlated with mammographic findings. Electronically signed and approved by: Bimal Dick D.O. Radiologis
== END | disposition home or self-care (01) ==
LOC: RADMAMWWP 10:22
PROVIDERS: ATTEND Obstetrics & Gynecology
DX: Z12.31 Encounter for screening mammogram for malignant neoplasm of breast (principal); Z78.0 Asymptomatic menopausal state; Z85.3 Personal history of malignant neoplasm of breast
CPT/HCPCS: 77067

== ENCOUNTER 2023-10-25 08:38 | Day surgery (SDC) | payer MEDICAID ==
[2023-10-20 15:07] VITALS: BMI 26.9
[~2023-10-25 08:38] MED LIST changes: -LACTATED RINGERS 1,000 ML IV SCH; +LIDOCAINE 1% (10MG/ML) FOR IV START INTRADERMA PRN; -LIDOCAINE 1% 20 ML VIAL (10MG/ML) FOR IV START INTRADERMA PRN
[2023-10-25] MEDS: LACTATED RINGERS 1,000 ML IV SCH (09:12)
[2023-10-25 09:42] VITALS: TEMP 97.3
[2023-10-25] MEDS ORDERED: LIDOCAINE 1% INJ 10MG/ML (20 ML MDV) ONE (09:42)
[2023-10-25] MEDS ORDERED: PROPOFOL 10 MG/ML 20 ML VIAL IV ONE (09:42)
--- NOTE | 2023-10-25 09:57 | P.PCN ---
Date of Procedure: 10/25/23 Procedure(s) Performed: BRIEF HISTORY: Patient is a 58-year-old pleasant female scheduled for an elective colonoscopy as a part of evaluation of prior history of colon polyps. Last coloscopy was 5 years ago. PROCEDURE PERFORMED: Colonoscopy. PREOPERATIVE DIAGNOSIS: History Of colon polyps. IV sedation per Anesthesia. PROCEDURE: After informed consent was obtained, the patient, was brought into the endoscopy unit. IV sedation was administered by Anesthesia under continuous monitoring. Digital rectal examination was normal. Initially the Olympus CF-160 flexible video colonoscope was then inserted in the rectum, gradually advanced into the cecum without any difficulty. Careful examination was performed as the scope was gradually being withdrawn. Ileocecal valve and the appendiceal orifice were visualized and appeared normal. Prep was excellent. Mucosa of the cecum, ascending colon, transverse colon, descending colon, sigmoid colon, and rectum appeared normal. Retroflexion was performed in the rectum and no lesions were seen. The patient tolerated the procedure well. IMPRESSION: Normal-appearing colon from rectum to cecum with no evidence of colorectal neoplasia . RECOMMENDATIONS: Findings of this examination were discussed with the patient as well as a family. She was advised to have a repeat colonoscopy in 5 years because of the prior history of colon polyps..
[2023-10-25 10:43] VITALS: BP 96/55; PULSE 94; RESP 18
== END 2023-10-25 11:31 | disposition home or self-care (01) ==
LOC: ORWHC2ENDO 08:38
PROVIDERS: ATTEND Internal Medicine Gastroenterology
DX: Z12.11 Encounter for screening for malignant neoplasm of colon (principal); M79.7 Fibromyalgia; Z86.010 Personal history of colon polyps; Z79.899 Other long term (current) drug therapy
CPT/HCPCS: 45378; J2001; J2704

== ENCOUNTER → 2023-11-28 | Outpatient (CLI) | payer MEDICAID ==
[2023-11-28 16:38] LABS: Basophils # (A) 0.02 X 10*3/uL (0.00-0.10); Basophils % (A) 0.4 %; Eosinophils # (A) 0.09 X 10*3/uL (0.04-0.35); Eosinophils % (A) 1.9 %; HCT 39.8 % (37.2-46.3); HGB 13.1 g/dL (12.0-15.0); Lymphocytes # (A) 1.94 X 10*3/uL (0.90-5.00); Lymphocytes % (A) 41.8 %; MCH 28.4 pg (27.0-32.0); MCHC 32.9 g/dL (32.0-37.0); MCV 86.1 FL (80.0-97.0); Mean Platelet Volume 9.7 FL (9.5-12.2); Monocytes # (A) 0.26 X 10*3/uL (0.20-1.00); Monocytes % (A) 5.6 %; NRBC Per 100 WBC 0 X 10*3/uL (0.00-0.01); Neutrophils # (A) 2.32 X 10*3/uL (1.80-7.70); Neutrophils % (A) 50.1 %; Platelet Count 287 X 10*3/uL (140-440); RBC 4.62 X 10*6/uL (4.10-5.20); RDW 13.1 % (11.5-14.5); WBC 4.64 X 10*3/uL (4.50-10.00)
[2023-11-28 16:48] LABS: Erythrocyte Sedimentation Rate 12 mm/Hr (0-30)
[2023-11-28 16:57] LABS: ALT 10 U/L (8-44); AST 17 U/L (13-35); Albumin 4.4 g/dL (3.8-4.9); Alkaline Phosphatase 71 U/L (41-126); Blood Urea Nitrogen 8.1 mg/dL (9.0-27.0); Calcium 9.4 mg/dL (8.7-10.3); Carbon Dioxide 26.8 mmol/L (21.6-31.8); Chloride 103 mmol/L (96-109); Chol/HDL Ratio 3.91 Ratio; Creatine Kinase 51 U/L (26-186); Globulin 2.1 g/dL (1.6-3.3); Glucose 92 mg/dL (70-110); LDL Cholesterol,Calculated 138.5 mg/dL (0.0-131.0); Magnesium 2.4 mg/dL (1.5-2.4); Potassium 4.3 mmol/L (3.5-5.5); Sodium 140 mmol/L (135-145); T4, Free (Free Thyroxine) 1.45 ng/dL (0.80-1.80); Total Bilirubin 0.3 mg/dL (0.3-1.2); Total Protein 6.5 g/dL (6.2-8.2)
== END | disposition home or self-care (01) ==
LOC: LABWHC1 11:55
PROVIDERS: ATTEND Internal Medicine
DX: D68.69 Other thrombophilia (principal); E78.5 Hyperlipidemia, unspecified; M79.7 Fibromyalgia; E55.9 Vitamin D deficiency, unspecified; E53.8 Deficiency of other specified B group vitamins; E61.2 Magnesium deficiency; Z78.0 Asymptomatic menopausal state
CPT/HCPCS: 36415; 80053; 80061; 82306; 82550; 82607; 83036; 83735; 84439; 84443; 85025; 85652

== ENCOUNTER → 2024-07-26 | Outpatient (CLI) | payer MEDICAID ==
--- NOTE | 2024-07-29 08:47 | MM ---
Reason for Exam: Screening (asymptomatic). Last mammogram was performed 1 year(s) and 1 month(s) ago. Patient History: Menarche at age 13. First Full-Term at age 20. Hysterectomy at age 44. Postmenopausal. Breast cancer, right, age 41. 2006, Mastectomy on the Right side. 2001, Benign Excisional Biopsy on the left side. 06/25/2015, Benign Core Biopsy on the left side. 2006, Bilateral Implants. 02/2016, Implant(s). Prior Study Comparison: 08/20/2021 Left Diagnostic Mammogram, [facility]. 09/08/2022 Bilateral MG 3D screen mammo imp/cad., [facility]. 07/18/2023 Bilateral MG 3D screen mammo imp/cad., [facility]. Tissue Density: Left: The breasts are almost entirely fatty. Findings: Bilateral breast implants appear intact. Left breast biopsy clip. Right breast: There is no suspicious group of microcalcifications or new suspicious mass. Left breast: There is no suspicious group of microcalcifications or new suspicious mass. Overall Assessment: Benign, BI-RAD 2 Management: Screening Mammogram of both breasts in [address] [facility] will attempt to contact patient to return for supplemental views and ultrasound if indicated. Patient should continue monthly self-breast exams. A clinical breast exam by your physician is recommended on an annual basis. This exam should not preclude additional follow-up of suspicious palpable abnormalities. Note on Annika scores and lifetime risk: 1. A Annika score greater than 3% is considered moderate risk. If this is the case, consider specialist referral to assess eligibility for a risk reducing agent. 2. If overall lifetime risk for the development of breast cancer is 20% or higher, the patient may qualify for future screening with alternating mammogram and breast MRI. [facility], , 07/29/2024 8:43 AM. Electronically signed and approved by: Hayden Carrera DO
== END | disposition home or self-care (01) ==
LOC: RADMAMWWP 13:44
PROVIDERS: ATTEND Obstetrics & Gynecology
DX: Z12.31 Encounter for screening mammogram for malignant neoplasm of breast (principal); Z78.0 Asymptomatic menopausal state; Z90.11 Acquired absence of right breast and nipple
CPT/HCPCS: 77067